=== PATIENT | female | born 1955 | race Caucasian/White ===

== ENCOUNTER 2016-07-28 19:15 | Emergency (ER) | payer OTHER ==
[2016-07-28 20:23] VITALS: BP 117/83
--- NOTE | 2016-07-28 20:56 | UC ---
Throat Pain/Nasal Moo HPI - HPI Summary HPI Summary: pt c/o of nasal congestion, cough, sinus pressure and discomfort X 7 days. - History of Current Complaint Chief Complaint: UCGeneralIllness Stated Complaint: CONGESTION/SINUS Time Seen by Provider: 07/28/16 20:31 Hx Obtained From: Patient ?: No Onset/Duration: Sudden Onset, Lasting Days Severity: Moderate Associated Signs & Symptoms: Positive: Sinus Discomfort, Fever - Allergies/Home Medications Allergies/Adverse Reactions: Allergies Allergy/AdvReac Type Severity Reaction Status Date / Time Amoxicillin Allergy Rash, Verified 07/28/16 20:23 Swelling Around Eyes Sulfa Antibiotics Allergy Unknown Verified 07/28/16 20:23 Reaction Details PMH/Surg Hx/FS Hx/Imm Hx Previously Healthy: Yes - pt does not get flu vaccine Endocrine History Of: Denies: Diabetes, Thyroid Disease Cardiovascular History Of: Denies: Cardiac Disorders, Hypertension Respiratory History Of: Denies: Asthma - Surgical History Surgical History: Yes Surgery Procedure, Year, and Place: breast biopsy - Family History Known Family History: Positive: Other - positive [facility] for URI - Social History Lives: With Family Alcohol Use: Rare Substance Use Type: None Smoking Status (MU): Never Smoked Tobacco Review of Systems Constitutional: Fever, Fatigue Skin: Negative Eyes: Negative ENT: Other - nasal congestion, sinus pressure, Respiratory: Cough Cardiovascular: Negative Gastrointestinal: Negative Genitourinary: Negative Motor: Negative Neurovascular: Negative Musculoskeletal: Negative Neurological: Headache Psychological: Negative All Other Systems Reviewed And Are Negative: Yes Physical Exam Triage Information Reviewed: Yes Appearance: Ill-Appearing Vital Signs: Initial Vital Signs Temp 99.2 F 07/28/16 20:19 Pulse 66 07/28/16 20:19 Resp 16 07/28/16 20:19 BP 117/83 07/28/16 20:19 Pulse Ox 98 07/28/16 20:19 Vital Signs Reviewed: Yes ENT Exam: Other ENT: Positive: Nasal congestion, Other: - maxillary sinus tenderness Neck exam: Normal Respiratory Exam: Normal Cardiovascular Exam: Normal Musculoskeletal Exam: Normal Neurological Exam: Normal Psychological Exam: Normal Skin Exam: Normal Throat Pain/Nasal Course/Dx - Differential Dx/Diagnosis Differential Diagnosis/HQI/PQRI: Influenza, Sinusitis, URI Provider Diagnoses: sinusitis. URI Discharge - Discharge Plan Condition: Stable Disposition: HOME Prescriptions: Azithromycin TAB* [Zithromax TAB (Z-JONO) 250 mg #6 tabs] 2 tab PO .TODAY, THEN 1 DAILY #1 jono Pseudoephedrine-Guaifenesin [Mucinex D 60-600 mg] 1 tab PO DAILY #10 tab Patient Education Materials: Sinusitis (ED) Referrals: Moises Berkowitz MD [Primary Care Provider] -
== END 2016-07-28 21:05 | disposition home or self-care (01) ==
LOC: UCCORT 19:15
DX: J32.9 Chronic sinusitis, unspecified (principal); J06.9 Acute upper respiratory infection, unspecified; Z88.0 Allergy status to penicillin; Z88.2 Allergy status to sulfonamides
CPT/HCPCS: 99212; G0463

== ENCOUNTER 2018-12-01 16:46 | Emergency (ER) | payer OTHER ==
[2018-12-01 17:11] VITALS: BP 110/69
--- NOTE | 2018-12-01 17:30 | UC ---
Ear Complaint HPI - HPI Summary HPI Summary: C/O ear fullness right ear since last night with pulsing sensation in the ear. No cough. Denies congestion or fever. - History of Current Complaint Chief Complaint: UCEar Stated Complaint: RIGHT EAR CONCERN Hx Obtained From: Patient Onset/Duration: Gradual Onset, Lasting Days - 1, Still Present Severity Initially: Mild Severity Currently: Mild Pain Intensity: 0 Aggravating Factors: Nothing Alleviating Factors: Nothing Associated Signs/Symptoms: Positive: Hearing Loss - Allergies/Home Medications Allergies/Adverse Reactions: Allergies Allergy/AdvReac Type Severity Reaction Status Date / Time amoxicillin Allergy Rash, Verified 12/01/18 17:03 swelling around eyes Sulfa (Sulfonamide Allergy See Comment Verified 12/01/18 17:03 Antibiotics) PMH/Surg Hx/FS Hx/Imm Hx Previously Healthy: Yes - Surgical History Surgical History: Yes Surgery Procedure, Year, and Place: breast biopsy - Family History Known Family History: Positive: Cardiac Disease, Hypertension, Other - positive [facility] for URI Negative: Diabetes - Social History Occupation: Employed Full-time Lives: With Family Alcohol Use: Occasionally Substance Use Type: None Smoking Status (MU): Never Smoked Tobacco Review of Systems All Other Systems Reviewed And Are Negative: Yes ENT: Positive: Ear Ache - fullness Is Patient Immunocompromised?: No Physical Exam Triage Information Reviewed: Yes Appearance: Well-Appearing, No Pain Distress, Well-Nourished Vital Signs: Initial Vital Signs Temp 98.8 F 12/01/18 17:05 Pulse 79 12/01/18 17:05 Resp 12 12/01/18 17:05 BP 110/69 12/01/18 17:05 Pulse Ox 98 12/01/18 17:05 Vital Signs Reviewed: Yes Eyes: Positive: Conjunctiva Clear ENT: Positive: Pharynx normal, Nasal congestion - allergic changes, TMs normal Neck exam: Normal Respiratory Exam: Normal Cardiovascular Exam: Normal Musculoskeletal Exam: Normal Neurological Exam: Normal Psychological Exam: Normal Skin Exam: Normal Ear Complaint Course/Dx - Differential Dx/Diagnosis Differential Diagnosis/HQI/PQRI: Cerumen Impaction, Otitis Externa, Otitis Media , Perforated TM, URI Provider Diagnosis: Dysfunction of right eustachian tube, Allergic rhinitis Discharge - Sign-Out/Discharge Documenting (check all that apply): Patient Departure All imaging exams completed and their final reports reviewed: No Studies - Discharge Plan Condition: Stable Disposition: HOME Patient Education Materials: Allergic Rhinitis (ED) Referrals: Moises Berkowitz MD [Primary Care Provider] - Additional Instructions: EUSTATION TUBE DYSFUNCTION: The tube that allows the middle ear to equalize the pressure with the outside air is blocked. This can be due to colds, allergies, smoke, or other irritants. Short term treatment can include Afrin, sudafed and nasal cortisone sprays for allergies. What's in My Handbag SINUS RINSE: CHECK OUT AT [employer] Saline nasal wash helps with mucous, allergies and congestion. It can be used up to twice a day or only as needed. Use lukewarm tap water. It does not have to be sterilized or distilled water. Do 1/3 on each side and snort out of both nostrils. Repeat the process with 1/6 of the bottle on each side with snorting in between to finish the solution in the bottle - Billing Disposition and Condition Condition: STABLE Disposition: Home
== END 2018-12-01 17:41 | disposition home or self-care (01) ==
LOC: UCCORT 16:46
DX: H69.81 Other specified disorders of Eustachian tube, right ear (principal); J30.9 Allergic rhinitis, unspecified
CPT/HCPCS: 99211; G0463